=== PATIENT | male | born 1970 | race Caucasian/White ===

== ENCOUNTER → 2020-08-25 | Outpatient (CLI) | payer OTHER ==
[~2020-08-25] MED LIST: FLEXERIL PO; IBUPROFEN 800800 M1 PO; MECLIZINE HCL25 MG PO; SYNTHROID25 MCG PO
== END ==
LOC: RAD 08:54
PROVIDERS: ATTEND Family Medicine
DX: M79.672 Pain in left foot (principal); Z98.1 Arthrodesis status